=== PATIENT | male | born 1995 | race Caucasian/White ===

== ENCOUNTER 2018-05-19 19:30 | Emergency (ER) | payer BC ==
--- NOTE | 2018-05-19 19:43 | EDPHY ---
General Time Seen by Provider: 05/19/18 19:43 Narrative: CLINICAL IMPRESSION: Wound check ASSESSMENT/PLAN: Patient is a 22-year-old male with no significant medical history who presents to the emergency department requesting a wound check, also complaining of left lower extremity pain. Patient with laceration sustained yesterday from snowboarding accident, repaired in the emergency department in [facility]. Patient is afebrile and not toxic-appearing, he is in no acute distress on arrival. Physical examination reveals a 4 cm laceration along the anterior aspect of the left frazier with mild associated edema, sutures intact, wound well approximated. There is mild hyperemia at the site of where the bandage was, no erythema or calor, the compartment is soft. X-ray revealed no evidence of acute fracture or retained foreign body. There were no findings to suggest compartment syndrome, wound dehiscence, wound infection, fracture, necrotizing skin infection, deep space infection or neurovascular compromise. The patient is visiting from [place], he is returning later this week. Patient will continue his antibiotic as previously prescribed, local wound care discussed. He will follow up for suture removal in 10 days as planned. Conservative return precautions were discussed-patient will return for any wound concerns, wound dehiscence, signs of infection or for any other concerning symptom. Patient verbalizes understanding and he is in agreement with this plan. DIFFERENTIAL DX: Differential diagnosis including but not limited to and in no particular order wound infection, wound dehiscence, fracture, compartment syndrome, retained foreign body ED COURSE: 2010: Case discussed with Dr. Harrington 2027: X-ray reviewed by myself and Dr. Harrington, no obvious fracture or retained foreign body. CHIEF COMPLAINT: Wound check, left lower leg pain HPI: Patient is a 22-year-old male who presents to the emergency department with left lower extremity pain and wanting a wound check. Patient is visiting from [facility], he sustained a left lower extremity laceration while snowboarding yesterday where he was seen and evaluated in the emergency department there and required sutures. Patient reports he was riding his snowboard down a rail when he accidentally fell hitting his frazier on the metal rail. He immediately saw laceration, was able to get the bleeding under control and proceeded to the emergency department. The wound was copiously irrigated and repaired, no x-ray was obtained. His tetanus status was updated at that time, he has been continuing the antibiotics as directed. Patient reports today he had increased pain and swelling at the site of his laceration became concerned. He denies any drainage or numbness or tingling of the extremity. He has no other questions or concerns. PAST MEDICAL HISTORY: Denies Family History: Noncontributory Social History: Denies illicit drug use or alcohol. ROS: A full 10 point review of systems was negative except for those mentioned in HPI. PHYSICAL EXAM: General Appearance: Well-appearing, no acute distress. HEENT: Normocephalic, atraumatic. External ears are normal. Nares are clear. Oropharynx is clear. Eyes: [PERRLA, EOMI intact. Conjunctiva pink, no pallor or injection] Neck: [Supple, nontender, FROM.] Respiratory: [There are no retractions, lungs are clear to auscultation.] Cardiac: [Regular rate and rhythm, no murmurs or gallops.] Gastrointestinal: [Abdomen is soft, nontender, bowel sounds normal, no masses/ hernia, no rigidity, guarding or focal peritoneal findings.] Skin: [Warm, dry, no rashes, no nodules on palpation.] Upper Extremities: Intact distal pulses, Full range of motion intact, no tenderness, no ecchymosis or edema Lower Extremities: Intact distal pulses, No cyanosis, full range of motion intact, No calf tenderness bilaterally. Left lower extremity reveals a 4 cm laceration along the left anterior frazier. It is well approximated with sutures in place, faint hyperemia at the site of his bandage. No associated calor or significant erythema. The leg compartment is soft. MEDICAL DECISION MAKING: Patient was seen independently. Secondary supervising physician at time of evaluation was Dr. Harrington. Diagnosis: Wound check, left lower extremity laceration. New, requires workup Summary: [See Assessment and Plan for summary of ED visit ] Clinical lab tests: Not applicable. Independent visualization of images, tracing, or specimens: Yes. Decision to obtain medical records or history from someone other than the patient: No Review / Summarize previous medical records: None available Discussed patient with another provider: Yes, Dr. Harrington Patient Progress: Stable, discharged. (oScorro Matt) Medical Decision Making: I did not see this patient while he was in the emergency department. However his care was discussed with the PA while the patient was in the department. I agree with treatment plan and management (Pal Escalera Deondre) - Diagnostics Imaging Results: Imaging Impressions Tibia/Fibula X-Ray 05/19/18 20:10 Impression: There is no acute osseous abnormality, or radiopaque foreign body. - Objective Vital Signs: Initial Vital Signs Temperature (C) 36.4 C 05/19/18 19:41 Heart Rate 96 05/19/18 19:41 Respiratory Rate 16 05/19/18 19:41 Blood Pressure 154/93 H 05/19/18 19:41 O2 Sat (%) 87 L 05/19/18 19:41 O2 Delivery Mode Room Air Allergies/Adverse Reactions: shellfish derived Allergy (Verified 05/19/18 19:43) Home Medications: Medication Instructions Recorded Albuterol 05/19/18 Departure - Departure Disposition: Home, Routine, Self-Care Clinical Impression: Visit for wound check, Leg pain, left Condition: Good Instructions: Laceration (ED) Additional Instructions: DISCHARGE INSTRUCTIONS FROM YOUR DOCTOR Thank you for visiting our emergency department today. Please keep in mind that discharge from the emergency department does not mean that there is nothing wrong - it simply means that we have not identified an emergency condition that requires further evaluation or treatment in the hospital. You should always plan to follow up with primary care for re-evaluation of your condition in the next 2-3 days. Your x-ray was negative for acute fracture or obvious retained foreign body. Please continue taking your antibiotics as previously recommended. Please follow the recommendations they had for your suture removal. If you have any concerns prior to returning back to [facility] you may return to the emergency department for a wound check. Keep wound clean and dry for 24 hours. Then remove dressing, clean at least twice daily or when soiled with soap and water, apply antibiotic ointment and dressing. Do not soak the wound while the stitches are in place. For pain control: You may take Tylenol, I recommend 500-1000 mg every 6-8 hours as needed. Take with food and a full glass of water. Stop taking if this is upsetting her stomach. Do not exceed 4000 mg in a 24 hr period. You may also take ibuprofen, recommend 400 mg every 6 hr. Take with food and a full glass of water. Stop taking if this upsets her stomach. Do not exceed 2400 mg in a 24 hr period. Return for signs of wound infection ie: redness, swelling, drainage, foul odor, red streaks, fever, chills, pain, bleeding, if the stitches pop, if the wound opens or for any other new, worsening or worrisome symptoms. People present with illnesses and injuries in different ways, and it is always possible that we have missed something. You may always return for re-evaluation if symptoms worsen or if they are not improving or if you develop new/different symptoms. Again, thank you for choosing our emergency department. We hope that you feel better. Referrals: Patient,NotPresent [Unknown] - As per Instructions
[2018-05-19 20:47] VITALS: BP 133/65
== END 2018-05-19 20:47 | disposition home or self-care (01) ==
DX: Z48.00 Encounter for change or removal of nonsurgical wound dressing (principal); M79.605 Pain in left leg